=== PATIENT | female | born 1970 | race Caucasian/White ===

== ENCOUNTER 2017-12-30 23:53 | Emergency (ER) | payer OTHER ==
[~2017-12-30] VITALS: Ht 157.5 cm; Wt 86.2 kg
[2017-12-30] MEDS ORDERED: IBUPROFEN 200200 M1 PO (23:58)
[2017-12-30] MEDS ORDERED: TRAMADOL 50 MG50 MG PO (23:58)
[2017-12-30] MEDS ORDERED: LASIX 20 MG TAB20 MG PO (23:59)
[2017-12-30] MEDS ORDERED: NORCO 10-325 T1 EACH PO (23:59)
[2017-12-30] MEDS ORDERED: MULTIVITAMINS1 EAC7 PO (23:59)
[2017-12-30] MEDS ORDERED: LYRICA 50 MG50 MG PO (23:59)
[2017-12-31 01:42] VITALS: BP 136/88
== END 2017-12-31 01:43 | disposition home or self-care (01) ==
LOC: ER 23:53
DX: S61.217A Laceration without foreign body of left little finger without damage to nail, initial encounter (principal); M79.7 Fibromyalgia; W26.0XXA Contact with knife, initial encounter; Y92.000 Kitchen of unspecified non-institutional (private) residence as the place of occurrence of the external cause; Y93.89 Activity, other specified; Y99.8 Other external cause status